=== PATIENT | male | born 1995 | race Caucasian/White ===

== ENCOUNTER 2017-05-20 19:12 | Emergency (ER) | payer MEDICAID ==
[~2017-05-20] VITALS: Ht 175.3 cm; Wt 70.3 kg
[2017-05-20] MEDS ORDERED: ACETAMINOPHEN 500 MG TAB PO ONE ×2 (19:15→19:30)
[2017-05-20 19:21] VITALS: BP 130/96
[2017-05-20] MEDS ORDERED: cefTRIAXone SOD 1,000 MG VL IM ONE (21:15)
== END 2017-05-20 21:26 | disposition home or self-care (01) ==
LOC: ER 19:12
DX: J03.90 Acute tonsillitis, unspecified (principal)
CPT/HCPCS: 96372; 99283; J0696

== ENCOUNTER 2019-04-10 12:08 | Inpatient (IN) | payer MEDICAID ==
[~2019-04-10] VITALS: Ht 175.3 cm; Wt 69.9 kg
[~2019-04-10 12:08] MED LIST: LABE100T4 PO; LISI40TA PO
[2019-04-10 13:09] LABS: Basophils # (auto) 0 uL; Basophils % (auto) 0.2 % (0.0-2.0); Eosinophils # (auto) 0 uL; Hemoglobin 17.4 g/dL (13.5-17.5); Lymphocytes # (auto) 1.4 uL; Lymphocytes % (auto) 7.7 % (10.0-50.0); Mean Corpuscular Volume 88.2 fL (80.0-100.0); Monocytes # (auto) 0.5 uL; Neutrophils # (auto) 15.8 uL; Neutrophils % (auto) 89.1 % (37.0-80.0); Platelet Count (auto) 325 10^3/uL (140-450); Red Blood Cells 5.78 10^6/uL (4.5-5.90); Red Cell Distribution Width 14.2 % (11.8-14.3); White Blood Cell 17.7 10^3/uL (4.4-10.8)
[2019-04-10 13:32] LABS: Albumin 4.7 g/dL (3.4-5.0); BUN/Creatinine Ratio 7.5; Calcium 9.7 mg/dL (8.5-10.1)
[2019-04-10 13:34] LABS: Bilirubin, Total 0.7 mg/dL (0.2-1.0); Total Protein 8.7 g/dL (6.4-8.2)
[2019-04-10] MEDS ORDERED: metroNIDAZOLE 500MG/100ML 100 ML IV ONE (14:30)
[2019-04-10] MEDS ORDERED: SODIUM CHLORIDE 0.9% 1,000 ML IV ONE ×2 (14:30)
[2019-04-10] MEDS ORDERED: MORPHINE SULFATE 4 MG/ML SYR/VIAL IV ONE (14:30)
[2019-04-10] MEDS ORDERED: ONDANSETRON HCL 4 MG/2 ML VIAL IV ONE (14:30)
[2019-04-10 15:20] LABS: Lactic Acid w/Reflex 2.1 mmol/L (0.4-2.0)
[2019-04-10 15:23] LABS: INR 1.07 (0.9-1.15); Partial Thromboplastin Time 26.4 sec (23.64-32.05)
[2019-04-10] MEDS ORDERED: MORPHINE SULF INJ 2 MG/ML SYRINGE 1ML IV ONE (17:15)
[2019-04-10] MEDS ORDERED: PROMETHAZINE HCL 25 MG/ML 1ML IV ONE (17:15)
[2019-04-10 17:44] LABS: Urine Bacteria NONE SEEN /hpf (None Seen); Urine Blood Negative /uL (Negative); Urine Mucus FEW (None Seen); Urine Specific Gravity 1.029 (1.001-1.035); Urine WBC <1 /hpf (0 - 3)
[2019-04-10 17:57] LABS: Alcohol, Urine < 3.0 mg/dL (0-5); Amphetamine Screen, Urine NEGATIVE (NEGATIVE); Barbiturate Scree,Urine NEGATIVE (NEGATIVE); Benzodiazephine Screen, Urine NEGATIVE (NEGATIVE); Cannabinoid Screen, Urine POSITIVE (NEGATIVE); Cocaine Screen, Urine NEGATIVE (NEGATIVE); Opiate Scree,Urine POSITIVE (NEGATIVE); Phencyclidine Screen, Urine NEGATIVE (NEGATIVE)
[2019-04-10] MEDS ORDERED: ACETAMINOPHEN 500 MG TAB PO PRN (18:30)
[2019-04-10] MEDS ORDERED: ONDANSETRON HCL 4 MG/2 ML VIAL IV PRN (18:30)
[2019-04-10] MEDS ORDERED: LABETALOL HCL 5 MG/ML ML 20ML VIAL IV PRN (18:30)
[2019-04-10] MEDS ORDERED: NITROGLYCERIN 0.4 MG SL TAB SL PRN (18:30)
[2019-04-10] MEDS ORDERED: HYDROcodone-ACET 5/325MG TAB PO PRN (18:30)
[2019-04-10] MEDS ORDERED: MORPHINE SULF INJ 2 MG/ML SYRINGE 1ML IV PRN ×2 (18:30)
[2019-04-10] MEDS: SOD CHL 0.9%/ KCL 20MEQ 1,000 ML IV SCH (19:49)
[2019-04-10 20:23] VITALS: BP 140/80
--- NOTE | 2019-04-10 20:23 | NUR ---
Telemetry admit from ER GASTON MARIN admitted to Telemetry unit. Patient oriented to Jennifer Louise RN primary RN, unit, room, bed, and unit policies regarding patient care and visiting hours. Patient now on continuous telemetry monitoring, tele box #40 and telemetry reading on arrival to unit is SR. Patient on room air, weighed by bedscale and encouraged to call if they need something. All questions and concerns addressed, patient verbalized understanding. Note: Family at bedside. Fall and safety precautions in place. Call light within reach
[2019-04-10] MEDS: CARVEDILOL 3.125 MG TAB PO SCH ×2 (21:16→22:23)
[2019-04-10] MEDS: metroNIDAZOLE 500MG/100ML 100 ML IV SCH (21:17)
[2019-04-10] MEDS: DOXAZOSIN MESYL 2 MG TAB PO SCH ×2 (21:17→22:23)
[2019-04-10 22:00] VITALS: BP 140/80
--- NOTE | 2019-04-10 23:59 | NUR ---
HOSPITALIST transit vehicle inspector hospitalist paged at this time. Awaiting call back
--- NOTE | 2019-04-11 00:40 | NUR ---
HOSPITALIST Received response from conservation engineer hospitalist Kimo Petersen NP. New orders received, read back and verified. Will input and carry out
[2019-04-11] MEDS ORDERED: PROMETHAZINE HCL 25 MG/ML 1ML IV ONE (00:45)
[2019-04-11] MEDS ORDERED: PNEUMOCOCCAL VACC POLYS 25 MCG/0.5 ML VIAL IM ONE (02:45)
[2019-04-11] MEDS ORDERED: INFLUENZA QUAD 2019-2020 0.5ml SYRG IM ONE (02:45)
[2019-04-11] MEDS ORDERED: DOXA1TAB42 PO (02:51)
[2019-04-11] MEDS ORDERED: DILT30TA24 PO (02:51)
[2019-04-11 05:00] VITALS: BP 151/81
[2019-04-11] MEDS: metroNIDAZOLE 500MG/100ML 100 ML IV SCH (06:08)
[2019-04-11 06:57] LABS: Basophils # (auto) 0 uL; Basophils % (auto) 0.3 % (0.0-2.0); Eosinophils # (auto) 0 uL; Eosinophils % (auto) 0.1 % (0.0-7.0); Hematocrit 44.6 % (41.0-53.0); Hemoglobin 15.1 g/dL (13.5-17.5); Lymphocytes # (auto) 3.2 uL; Lymphocytes % (auto) 24.6 % (10.0-50.0); Mean Corpuscular Hemoglobin 29.9 pg (28.0-32.0); Mean Corpuscular Hgb Conc. 33.8 g/dL (32.0-36.0); Mean Corpuscular Volume 88.4 fL (80.0-100.0); Monocytes % (auto) 7.5 % (0.0-12.0); Neutrophils # (auto) 8.8 uL; Neutrophils % (auto) 67.5 % (37.0-80.0); Platelet Count (auto) 300 10^3/uL (140-450); Red Blood Cells 5.04 10^6/uL (4.5-5.90); Red Cell Distribution Width 13.9 % (11.8-14.3)
[2019-04-11 07:33] LABS: Potassium 3.4 mmol/L (3.5-5.1)
[2019-04-11 07:39] LABS: Albumin 3.7 g/dL (3.4-5.0); BUN/Creatinine Ratio 9.7; Calcium 8.5 mg/dL (8.5-10.1)
[2019-04-11 07:43] LABS: Bilirubin, Total 0.7 mg/dL (0.2-1.0); Total Protein 7.2 g/dL (6.4-8.2)
[2019-04-11] MEDS: SOD CHL 0.9%/ KCL 20MEQ 1,000 ML IV SCH (08:25)
[2019-04-11] MEDS: CARVEDILOL 3.125 MG TAB PO SCH (09:40)
[2019-04-11] MEDS ORDERED: FAMOTIDINE 20 MG TAB PO SCH (10:00)
[2019-04-11] MEDS ORDERED: LEVOFLOXACIN 500MG 100 ML IV SCH (10:00)
[2019-04-11] MEDS ORDERED: POTASSIUM CHL 20 Meq TABLET PO ONE (12:30)
--- NOTE | 2019-04-11 14:30 | NUR ---
Discharge Went over discharge paperwork with patient. Gave prescription to patient. Removed IV. Removed ID band. Patient left in personal vehicle with all belongings. He was taken out to the vehicle in a wheelchair.
== END 2019-04-11 15:25 | disposition home or self-care (01) | DRG 249 ==
LOC: EDBD 12:08 → ER 12:08 → TELE 12:09 → TELE-CENTR 21:26
PROVIDERS: ADMIT Nurse Practitioner Acute Care; ATTEND Internal Medicine
DX: K52.9 Noninfective gastroenteritis and colitis, unspecified (principal); I11.0 Hypertensive heart disease with heart failure; R65.10 Systemic inflammatory response syndrome (SIRS) of non-infectious origin without acute organ dysfunction; I50.9 Heart failure, unspecified; Z89.611 Acquired absence of right leg above knee; I73.9 Peripheral vascular disease, unspecified; R00.0 Tachycardia, unspecified; R79.89 Other specified abnormal findings of blood chemistry; Z79.899 Other long term (current) drug therapy; D44.7 Neoplasm of uncertain behavior of aortic body and other paraganglia
CPT/HCPCS: 36415; 71045; 74176; 76705; 80053; 80307; 81001; 83605; 84484; 85025; 85610; 85730; 87040; G0378; J1956; J2405; J3490